=== PATIENT | male | born 1985 | race Caucasian/White ===

== ENCOUNTER 2017-08-14 22:53 | Emergency (ER) | payer BC, OTHER ==
[2017-08-14] MEDS ORDERED: Metoclopramide 10 MG/2 ML SDV IVPUSH ONE (23:16)
[2017-08-14] MEDS ORDERED: HYDROmorphone 0.5 MG/0.5 ML Syringe IVPUSH ONE (23:16)
--- NOTE | 2017-08-14 23:17 | EDM.PDOC ---
ED HPI GENERAL MEDICAL PROBLEM - General Chief Complaint: Abdominal Pain Stated Complaint: VOMITING/NUMB ARMS AND HANDS Time Seen by Provider: 08/14/17 23:12 Source of Information: Reports: Patient History Limitations: Reports: No Limitations - History of Present Illness INITIAL COMMENTS - FREE TEXT/NARRATIVE: 32-year-old male presents to the ED with acute onset of nausea vomiting and loose watery stools about an hour ago. He lost most of what ED and for supper and possibly dinner today. Emesis is really has been bilious without blood. He' s had 3-4 loose large loose watery stools per rectum. A little chance of bad food exposure. An office setting. His is not ill. He states sharp stabbing Abdominal pain which he reports as being 9 out of 10 nearly dropped him to the floor made him pass out. Pain is primarily in the left upper quadrant of the abdomen and not relieved by diarrhea stool. Previous abdominal surgery is that of laparoscopic cholecystectomy. He's cut some chills. He's had no noted fever. Hasn't eaten all of his regular meal so far today. Onset: Today Onset Date: 08/14/17 Onset Time: 22:00 Duration: Minutes: Location: Reports: Abdomen Quality: Reports: Sharp, Stabbing (Acute onset of nausea vomiting and loose watery diarrhea with strong abdominal cramping pain.), Other Severity: Severe (Strong colicky component to the pain. Reports 9 out of 10) Improves with: Reports: None Worsens with: Reports: None Context: Denies: Activity, Exercise, Lifting, Sick Contact, Trauma, Other Associated Symptoms: Reports: Diaphoresis, Fever/Chills (Chills but no fever), Malaise, Nausea/Vomiting, Weakness (See history of present illness). Denies: No Other Symptoms, Confusion, Chest Pain, Cough, cough w sputum, Headaches, Rash , Seizure, Shortness of Breath, Syncope Treatments MANAGER PHYSICAL: Reports: Other (see below) (None.) Abdomen Pain Score (Numeric/FACES): 9 - Related Data Allergies Allergy/AdvReac Type Severity Reaction Status Date / Time No Known Allergies Allergy Verified 08/14/17 23:05 Home Meds: Home Meds Ondansetron [Zofran ODT] 4 mg PO Q6H #10 tab.dis 12/20/17 [Rx] Past Medical History - Past Surgical History GI Surgical History: Reports: Cholecystectomy Social & Family History - Tobacco Use Smoking Status *Q: Never Smoker - Caffeine Use Caffeine Use: Reports: None - Recreational Drug Use Recreational Drug Use: No - Living Situation & Occupation Occupation: Employed ED ROS GENERAL - Review of Systems Review Of Systems: See Below Constitutional: Reports: No Symptoms HEENT: Reports: No Symptoms Respiratory: Reports: No Symptoms Cardiovascular: Reports: No Symptoms Endocrine: Reports: No Symptoms GI/Abdominal: Reports: No Symptoms : Reports: No Symptoms Musculoskeletal: Reports: No Symptoms Skin: Reports: No Symptoms Neurological: Reports: No Symptoms Psychiatric: Reports: No Symptoms Hematologic/Lymphatic: Reports: No Symptoms Immunologic: Reports: No Symptoms ED EXAM, GI/ABD - Physical Exam Exam: See Below Exam Limited By: No Limitations General Appearance: Alert, Moderate Distress (In obvious abdominal discomfort.) Eyes: Bilateral: Normal Appearance ( No jaundice) Throat/Mouth: Normal Inspection, Normal Oropharynx, Other Head: Atraumatic, Normocephalic (Lips are chapped but tongue is well-hydrated) Neck: Normal Inspection, Supple, Non-Tender, Full Range of Motion. No: Carotid Bruit, Lymphadenopathy (L), Lymphadenopathy (R) Respiratory/Chest: No Respiratory Distress, Lungs Clear, Normal Breath Sounds Cardiovascular: Normal Peripheral Pulses, Regular Rate, Rhythm, No Edema ( Anxious with heart rate of 1 18/m at rest.), No Gallop, No Murmur, No Rub, Tachycardia GI/Abdominal Exam: Normal Bowel Sounds, No Abnormal Bruit, No Mass, Pelvis Stable, Abnormal Bowel Sounds, Other (Abdomen is firm to palpation. Evidence of previous laparoscopic cholecystectomy). No: Rigid, Rebound, Tender (Male) Exam: No Hernia (Slightly hyperactive.) Back Exam: Normal Inspection, Full Range of Motion. No: CVA Tenderness (L), CVA Tenderness (R) Extremities: Normal Inspection, Normal Range of Motion, Non-Tender, No Pedal Edema, Normal Capillary Refill Neurological: Alert, Oriented, CN II-XII Intact, Normal Cognition Psychiatric: Normal Mood, Anxious Skin Exam: Warm, Dry, Intact, Normal Color, No Rash Course - Vital Signs Last Recorded V/S: Last Vital Signs Temp 35.9 C 08/14/17 23:00 Pulse 117 H 08/14/17 23:00 Resp 18 08/14/17 23:00 BP 136/94 H 08/14/17 23:00 Pulse Ox 100 08/14/17 23:00 - Orders/Labs/Meds Labs: Laboratory Tests 08/14/17 08/14/17 08/14/17 Range/Units 23:17 23:17 23:17 WBC 9.72 H (4.23-9.07) K/mm3 RBC 5.81 (4.63-6.08) M/mm3 Hgb 18.2 H (13.7-17.5) gm/L Hct 51.4 H (40.1-51.0) % MCV 88.5 (79.0-92.2) fl MCH 31.3 (25.7-32.2) pg MCHC 35.4 (32.2-35.5) g/dl RDW Std Deviation 40.2 (35.1-43.9) fL Plt Count 228 (163-337) K/mm3 MPV 10.0 (9.4-12.3) fl Neutrophils % (Manual) 69 H (40-60) % Band Neutrophils % 1 (0-10) % Lymphocytes % (Manual) 28 (20-40) % Atypical Lymphs % 0 % Monocytes % (Manual) 1 L (2-10) % Eosinophils % (Manual) 0 L (0.8-7.0) % Basophils % (Manual) 1 (0.2-1.2) Platelet Estimate Adequate Plt Morphology Comment Normal RBC Morph Comment Normal Sodium 141 (136-145) mEq/L Potassium 3.1 L (3.5-5.1) mEq/L Chloride 101 (98-107) mEq/L Carbon Dioxide 25 (21-32) mEq/L Anion Gap 18.1 H (5-15) BUN 16 (7-18) mg/dL Creatinine 1.3 (0.7-1.3) mg/dL Est Cr Clr Drug Dosing TNP Estimated GFR (MDRD) > 60 (>60) mL/min BUN/Creatinine Ratio 12.3 L (14-18) Glucose 119 H (74-106) mg/dL Calcium 10.4 H (8.5-10.1) mg/dL Total Bilirubin 2.4 H (0.2-1.0) mg/dL AST 21 (15-37) U/L ALT 26 (16-63) U/L Alkaline Phosphatase 67 (46-116) U/L C-Reactive Protein < 0.2 (<1.0) mg/dL Total Protein 8.4 H (6.4-8.2) g/dl Albumin 4.8 (3.4-5.0) g/dl Globulin 3.6 gm/dL Albumin/Globulin Ratio 1.3 (1-2) Amylase 71 (25-115) U/L Meds: Medications Discontinued Medications Generic Name Dose Route Start Last Admin Trade Name Sachin PRN Reason Stop Dose Admin Hydromorphone HCl 0.5 mg 08/14/17 23:16 08/14/17 23:25 Dilaudid IVPUSH 08/14/17 23:17 0.5 mg ONETIME ONE Administration Dextrose/Sodium Chloride 1,000 mls @ 999 mls/hr 08/14/17 23:30 08/14/17 23:25 Dextrose 5%-Normal Saline IV 999 mls/hr ASDIRECTED HIEU Administration Potassium Chloride 10 meq/ 100 mls @ 100 mls/hr 08/15/17 01:00 08/15/17 01:01 Premix IV 100 mls/hr ASDIRECTED HIEU Administration Dextrose/Sodium Chloride 1,000 mls @ 999 mls/hr 08/15/17 01:00 08/15/17 01:01 Dextrose 5%-Normal Saline IV 999 mls/hr ASDIRECTED HIEU Administration Ketorolac Tromethamine 30 mg 08/14/17 23:30 08/14/17 23:26 Toradol IVPUSH 30 mg ONETIME HIEU Administration Metoclopramide HCl 7.5 mg 08/14/17 23:16 08/14/17 23:26 Reglan IVPUSH 08/14/17 23:17 7.5 mg ONETIME ONE Administration - Radiology Interpretation Free Text/Narrative:: 32-year-old male attends the ED with acute onset of nausea vomiting and diarrhea. Symptoms started about an hour and a half ago. He's vomited large amount of the food that he seen earlier today. Then subsequent emeses have been bilious without blood. Stools have been large-volume water loss. The viral gastroenteritis has been very prevalent in her community as of late. It appears that there is little chance of foodborne illness her. Pain he reports in his abdomen is 9 out of 10 strong colicky plan IV D5 normal saline at open. Given Dilaudid 0.5 mg IV with Reglan 7.5 mg IV to rest nausea vomiting and relieve his pain. Also given Toradol 30 mg IV. One view abdomen routine labs will be obtained. - Re-Assessments/Exams Free Text/Narrative Re-Assessment/Exam: 08/15/17 00:50 Labs reveal a normal white count at 9.72 with a normal differential of 69% neutrophils and 1% bands. Hemoglobin is elevated at 18.2 with hematocrit of 51.4 suggesting a modest degree of hemoconcentration. Platelet count is normal at 228,000. Sodium is 141 potassium is low at 3.1. Chloride 11. Carbon dioxide 25. Anion gap is elevated at 18.1. BUN is 16. Creatinine 1.3. EGFR is greater than 60. Glucose is 119. Calcium is 10.4. Total bilirubin is elevated at 2.4 with normal AST of 21 and normal ALT at 26. Alkaline phosphatase is also normal 67. Therefore appears that the patient does have Gilbert's syndrome. Amylase is 71. C-reactive protein is less than 0.2. Plan will be to give him another liter of D5 normal saline at open. Will also give 10 mg potassium IV as well. 08/15/17 00:51 Patient reports he feels much better with no further abdominal cramping pain. Does feel a bit like he may have to have further diarrhea stool but nausea is gone. He will be allowed sips of Gatorade Powerade with some ice in the ED. He will receive about fluids as he has a significant metabolic acidosis at this time and will replace some of his potassium losses. He knew that he has Gilbert's syndrome. KUB is within normal limits. No signs of bowel obstruction 08/15/17 02:10: Is feeling much improved. Has completed 2 L of IV fluid. He has voided twice. Discharged home with Zofran 4 mg sublingually to be used every 4 hours. For nausea relief. Diet is to be clear fluids and advance as tolerated. He is to be on nondairy diet and no apple or grape juice until stools are formed backup. Note given to excuse him from the workplace today and tomorrow. Departure - Departure Time of Disposition: 02:01 Disposition: Home, Self-Care 01 Condition: Fair Clinical Impression: Gastroenteritis - Discharge Information Prescriptions: Ondansetron [Zofran ODT] 4 mg PO Q6H #10 tab.dis Instructions: Viral Gastroenteritis, Adult, [id number] Referrals: PCP,None [Primary Care Provider] - Forms: ED Department Discharge, ED Return to Work/School Form Additional Instructions: Evaluation in the emergency department in regards to acute onset of nausea vomiting and diarrhea. This appears to be of viral origin. These were aggressively with a large volume of fluid losses likely through diarrhea. You' re therefore given 2 L of IV fluids to replace volume loss as well as 10 mg of potassium to start replace potassium losses. Nausea was treated with Reglan 7.5 mg and abdominal pain treated with Toradol and Dilaudid to relieve cramping. Treatment at home is Zofran 4 mg under the tongue every 4-6 hours as needed for relief of further nausea or vomiting. Diet to be clear fluids such as Gatorade or Powerade ideally 5 or 6 ounces sipped per hour starting tomorrow morning. When hungry made dense to crackers and if tolerated may advance to dry toast or cereal. May then advance to soup broth and/or turkey rice turkey noodle soups. Stay away from all dairy products and no apple juice or grape juice until stools are formed backup which will usually be 3-4 days. Stomach flu typically is been lasting 24 hours but diarrhea can persist depending on what you eat. Note given to excuse her from work today and likely tomorrow.
[2017-08-14] MEDS ORDERED: Ketorolac 30 MG/ML SDV IVPUSH SCH (23:30)
[2017-08-14] MEDS ORDERED: Dextrose 5%-0.9% NaCl 1,000 ML IV SCH (23:30)
[2017-08-15] MEDS ORDERED: Potassium Chloride 10 MEQ in Premix Bag 1 BAG IV SCH (01:00)
[2017-08-15] MEDS ORDERED: Dextrose 5%-0.9% NaCl 1,000 ML IV SCH (01:00)
--- NOTE | 2017-08-15 07:21 | CR ---
Abdomen: Supine view of the abdomen was obtained. Comparison: No previous study. Calcifications are seen within the pelvis most likely representing phleboliths. Gasless abdomen is seen which is nonspecific. Bony structures show minimal scoliosis within the spine. Impression: 1. Incidental findings. Diagnostic code #2
== END 2017-08-15 02:15 | disposition home or self-care (01) ==
LOC: JD.ED 22:53
DX: K52.9 Noninfective gastroenteritis and colitis, unspecified (principal); Z90.49 Acquired absence of other specified parts of digestive tract
CPT/HCPCS: 36415; 74000; 80053; 82150; 85025; 86140; 96361; 96365; 96375; 99284; J1170; J1885; J2765; J3480; J7042

== ENCOUNTER 2020-07-09 08:39 | Emergency (ER) | payer OTHER ==
[2020-07-09] MEDS ORDERED: HYDROmorphone 0.5 MG/0.5 ML Syringe IVPUSH ONE ×2 (09:22→11:06)
[2020-07-09] MEDS: Sodium Chloride 0.9% 10 ML Syringe FLUSH PRN ×2 (09:41→10:11)
--- NOTE | 2020-07-09 09:44 | EDM.PDOC ---
ED HPI GENERAL MEDICAL PROBLEM - General Chief Complaint: Chest Pain Stated Complaint: CHEST PAIN ON LT SIDE Time Seen by Provider: 07/09/20 09:00 Source of Information: Reports: Patient History Limitations: Reports: No Limitations - History of Present Illness INITIAL COMMENTS - FREE TEXT/NARRATIVE: The patient presents with chest pain. He was diagnosed with COVID 19 on June 21. He has been out of quarantine for about a week. He was still having a cough, shortness of breath and generalized weakness. He went to the walk in clinic and they diagnosed him with pneumonia. He was put on a z-cameron. Yesterday he went for a 15 minute walk and last night he developed left sided chest pain. It hurts to take a deep breath and he cannot lay on his left side. He still has a cough and he feels short of breath. He has no fever or chills. He has no abdominal pain, nausea, vomiting or diarrhea. He has no medical problems such as asthma or heart disease. He does not smoke. Onset: Gradual Duration: Day(s): Location: Reports: Chest Quality: Reports: Sharp Severity: Moderate Improves with: Reports: Immobilization Worsens with: Reports: Movement Context: Denies: Trauma Associated Symptoms: Reports: Chest Pain, Cough, Shortness of Breath. Denies: Fever/Chills, Headaches, Nausea/Vomiting Left Chest Pain Score (Numeric/FACES): 6 - Related Data Allergies Allergy/AdvReac Type Severity Reaction Status Date / Time No Known Allergies Allergy Verified 08/14/17 23:05 Home Meds: Home Meds Albuterol Sulfate [Albuterol Sulfate Hfa] 1 inh INH ASDIRECTED 07/09/20 [History] Hydrocodone/Acetaminophen [Hydrocodone-Acetamin 5-325 mg] 1 - 2 each PO Q6HR PRN #10 tablet 07/09/20 [Rx] Past Medical History - Infectious Disease History Infectious Disease History: Reports: Chicken Pox, Influenza - Past Surgical History HEENT Surgical History: Reports: Oral Surgery GI Surgical History: Reports: Cholecystectomy Social & Family History - Tobacco Use Tobacco Use Status *Q: Never Tobacco User Second Hand Smoke Exposure: No - Caffeine Use Caffeine Use: Reports: None - Recreational Drug Use Recreational Drug Use: No - Living Situation & Occupation Occupation: Employed ED ROS GENERAL - Review of Systems Review Of Systems: See Below Constitutional: Reports: No Symptoms HEENT: Reports: No Symptoms Respiratory: Reports: Shortness of Breath, Cough Cardiovascular: Reports: Chest Pain Endocrine: Reports: No Symptoms GI/Abdominal: Reports: No Symptoms : Reports: No Symptoms Musculoskeletal: Reports: No Symptoms ED EXAM, GENERAL - Physical Exam Exam: See Below Exam Limited By: No Limitations General Appearance: Alert, No Apparent Distress Ears: Normal External Exam Nose: Normal Inspection Head: Atraumatic, Normocephalic Neck: Normal Inspection Respiratory/Chest: No Respiratory Distress, Lungs Clear, Normal Breath Sounds Cardiovascular: Regular Rate, Rhythm, No Edema, No Murmur GI/Abdominal: Soft, Non-Tender, No Organomegaly, No Mass Back Exam: Normal Inspection Extremities: Normal Inspection Course - Vital Signs Last Recorded V/S: Last Vital Signs Temp 98.2 F 07/09/20 08:57 Pulse 91 07/09/20 08:57 Resp 12 07/09/20 08:57 BP 121/85 07/09/20 08:57 Pulse Ox 100 07/09/20 08:57 - Orders/Labs/Meds Orders: Active Orders 24 hr Category Date Time Status Cardiac Monitoring [RC] . DIRECTED Care 07/09/20 09:14 Active EKG Documentation Completion [RC] STAT Care 07/09/20 09:15 Active Peripheral IV Care [RC] . DIRECTED Care 07/09/20 09:15 Active Sodium Chloride 0.9% [Normal Saline] 100 ml Med 07/09/20 10:00 Active IV ASDIRECTED Sodium Chloride 0.9% [Saline Flush] Med 07/09/20 09:14 Active 10 ml FLUSH ASDIRECTED PRN Sodium Chloride 0.9% [Saline Flush] Med 07/09/20 09:57 Active 10 ml FLUSH ONETIME PRN Peripheral IV Insertion Adult [OM.PC] Stat Oth 07/09/20 09:14 Ordered Medication Orders Sodium Chloride (Normal Saline) 100 mls @ 60 mls/hr IV ASDIRECTED HIEU Last Admin: 07/09/20 10:11 Dose: 60 mls/hr Documented by: GUSTAVO Sodium Chloride (Saline Flush) 10 ml FLUSH ASDIRECTED PRN PRN Reason: Keep Vein Open Last Admin: 07/09/20 10:11 Dose: 10 ml Documented by: [email or web address] Admin: 07/09/20 09:41 Dose: 10 ml Documented by: JAK Sodium Chloride (Saline Flush) 10 ml FLUSH ONETIME PRN PRN Reason: Keep Vein Open Last Admin: 07/09/20 10:47 Dose: 10 ml Documented by: JM Labs: Laboratory Tests 07/09/20 07/09/20 07/09/20 Range/Units 09:40 09:40 09:40 WBC 6.32 (4.23-9.07) K/mm3 RBC 4.85 (4.63-6.08) M/mm3 Hgb 15.4 D (13.7-17.5) gm/dl Hct 44.3 (40.1-51.0) % MCV 91.3 (79.0-92.2) fl MCH 31.8 (25.7-32.2) pg MCHC 34.8 (32.2-35.5) g/dl RDW Std Deviation 40.1 (35.1-43.9) fL Plt Count 324 D (163-337) K/mm3 MPV 9.5 (9.4-12.3) fl Neut % (Auto) 67.6 (34.0-67.9) % Lymph % (Auto) 17.4 L (21.8-53.1) % Shannon % (Auto) 13.8 H (5.3-12.2) % Eos % (Auto) 0.8 (0.8-7.0) Baso % (Auto) 0.2 (0.1-1.2) % Neut # (Auto) 4.28 (1.78-5.38) K/mm3 Lymph # (Auto) 1.10 L (1.32-3.57) K/mm3 Shannon # (Auto) 0.87 H (0.30-0.82) K/mm3 Eos # (Auto) 0.05 (0.04-0.54) K/mm3 Baso # (Auto) 0.01 (0.01-0.08) K/mm3 D-Dimer, Quantitative 0.20 (0.19-0.50) mg/L Sodium 138 (136-145) mEq/L Potassium 3.9 (3.5-5.1) mEq/L Chloride 103 (98-107) mEq/L Carbon Dioxide 26 (21-32) mEq/L Anion Gap 12.9 (5-15) BUN 13 (7-18) mg/dL Creatinine 1.1 (0.7-1.3) mg/dL Est Cr Clr Drug Dosing 101.90 mL/min Estimated GFR (MDRD) > 60 (>60) mL/min BUN/Creatinine Ratio 11.8 L (14-18) Glucose 94 (74-106) mg/dL Calcium 9.4 (8.5-10.1) mg/dL Total Bilirubin 1.3 H (0.2-1.0) mg/dL AST 15 (15-37) U/L ALT 30 (16-63) U/L Alkaline Phosphatase 78 (46-116) U/L Troponin I < 0.017 (0.00-0.056) ng/mL C-Reactive Protein 2.6 H* (<1.0) mg/dL Total Protein 7.1 (6.4-8.2) g/dl Albumin 3.6 (3.4-5.0) g/dl Globulin 3.5 gm/dL Albumin/Globulin Ratio 1.0 (1-2) Meds: Medications Generic Name Dose Route Start Last Admin Trade Name Freq PRN Reason Stop Dose Admin Sodium Chloride 100 mls @ 60 mls/hr 07/09/20 10:00 07/09/20 10:11 Normal Saline IV 60 mls/hr ASDIRECTED HIEU Administration Sodium Chloride 10 ml 07/09/20 09:14 07/09/20 10:11 Saline Flush FLUSH 10 ml ASDIRECTED PRN Administration Keep Vein Open Sodium Chloride 10 ml 07/09/20 09:57 07/09/20 10:47 Saline Flush FLUSH 10 ml ONETIME PRN Administration Keep Vein Open Discontinued Medications Generic Name Dose Route Start Last Admin Trade Name Freq PRN Reason Stop Dose Admin Hydromorphone HCl 0.5 mg 07/09/20 09:22 07/09/20 09:41 Dilaudid IVPUSH 07/09/20 09:23 0.5 mg ONETIME ONE Administration Iopamidol 100 ml 07/09/20 09:57 07/09/20 10:11 Isovue-370 (76%) IVPUSH 07/09/20 09:58 100 ml ONETIME ONE Administration - Re-Assessments/Exams Free Text/Narrative Re-Assessment/Exam: 07/09/20 09:43 I ordered an IV saline lock, dilaudid 0.5mg IV, EKG, CT angio of his chest and labs. 07/09/20 11:06 His EKG shows NSR with no acute changes. His CBC and CMP look good. His troponin is negative. His CRP is elevated at 2.6. The CT shows minimal ground- glass airspace disease within the right mid and lower lung pearson. Followup radiographs recommended after appropriate therapy. I feel this is COVID pneumonia still and more antibiotics will not help. He has more pain so I will give him some dilaudid and something for pain at home. Departure - Departure Time of Disposition: 11:10 Disposition: Home, Self-Care 01 Condition: Good Clinical Impression: COVID-19, Pneumonia due to COVID-19 virus, Pleurisy Prescriptions: Hydrocodone/Acetaminophen [Hydrocodone-Acetamin 5-325 mg] 1 - 2 each PO Q6HR PRN #10 tablet PRN Reason: Pain Referrals: Braeden Denny Jr, MD [Primary Care Provider] - 1 Week Forms: ED Department Discharge Additional Instructions: Drink plenty of fluids. Take tylenol or motrin for pain. If that does not help, try the hydrocodone. Get plenty of rest. Please return if you are worse. Sepsis Event Note (ED) - Evaluation Sepsis Screening Result: No Definite Risk - Focused Exam Vital Signs: Vital Signs Temp Pulse Resp BP Pulse Ox 07/09/20 08:57 98.2 F 91 12 121/85 100 - My Orders Last 24 Hours: My Active Orders 07/09/20 09:14 Cardiac Monitoring [RC] . DIRECTED Sodium Chloride 0.9% [Saline Flush] 10 ml FLUSH ASDIRECTED PRN Peripheral IV Insertion Adult [OM.PC] Stat 07/09/20 09:15 EKG Documentation Completion [RC] STAT Peripheral IV Care [RC] . DIRECTED 07/09/20 09:57 Sodium Chloride 0.9% [Saline Flush] 10 ml FLUSH ONETIME PRN 07/09/20 10:00 Sodium Chloride 0.9% [Normal Saline] 100 ml IV ASDIRECTED - Assessment/Plan Last 24 Hours: My Active Orders 07/09/20 09:14 Cardiac Monitoring [RC] . DIRECTED Sodium Chloride 0.9% [Saline Flush] 10 ml FLUSH ASDIRECTED PRN Peripheral IV Insertion Adult [OM.PC] Stat 07/09/20 09:15 EKG Documentation Completion [RC] STAT Peripheral IV Care [RC] . DIRECTED 07/09/20 09:57 Sodium Chloride 0.9% [Saline Flush] 10 ml FLUSH ONETIME PRN 07/09/20 10:00 Sodium Chloride 0.9% [Normal Saline] 100 ml IV ASDIRECTED
[2020-07-09] MEDS ORDERED: Iopamidol 755 Mg/ML 100 ML Bottle IVPUSH ONE (09:57)
[2020-07-09] MEDS ORDERED: Sodium Chloride 0.9% 10 ML Syringe FLUSH PRN (09:57)
[2020-07-09] MEDS ORDERED: Sodium Chloride 0.9% 100 ML IV SCH (10:00)
--- NOTE | 2020-07-09 10:43 | CT ---
PROCEDURE INFORMATION: Exam: CT Chest With Contrast Exam date and time: 07/09/2020 9:51 AM Age: 35 years old Clinical indication: Type not specified; Patient HX: Left sided chest pain, recent covid and pneumonia dx TECHNIQUE: Imaging protocol: Computed tomography of the chest with intravenous contrast. 3D rendering (Not supervised by radiologist): MIP and/or 3D reconstructed images were created by the technologist. Radiation optimization: All CT scans at this facility use at least one of these dose optimization techniques: automated exposure control; mA and/or kV adjustment per patient size (includes targeted exams where dose is matched to clinical indication); or iterative reconstruction. Contrast material: ISOVUE 370; Contrast volume: 100 ml; Contrast route: INTRAVENOUS (IV); COMPARISON: No relevant prior studies available. FINDINGS: Lungs: Subpleural interstitial prominence in the posterior lungs has an appearance most suggestive of atelectasis but in addition, there several other small peripheral but nodular interstitial opacities interstitial thickening and areas of slight ground-glass attenuation which are suspicious for an inflammatory process. Pleural space: Tiny pleural effusion. Heart: Unremarkable. No cardiomegaly. No pericardial effusion. Pulmonary arteries: No filling defects are identified in the arteries to suggest the presence a embolism. Aorta: Unremarkable. No aortic aneurysm. Lymph nodes: Unremarkable. No enlarged lymph nodes. Gallbladder and bile ducts: Cholecystectomy. Bones/joints: Unremarkable. No acute fracture. Soft tissues: Unremarkable. IMPRESSION: 1. No pulmonary embolism identified 2. Few areas nodular interstitial prominence and ground-glass attenuation and posterior dependent atelectasis. Imaging features can be seen with COVID-19 pneumonia, though are nonspecific and can occur with a variety of infectious and noninfectious processes. (Reference: Jose) References: Jose Jaeger, et al., Radiological Society of [place] Expert Consensus Statement on Reporting Chest CT Findings Related to COVID-19. Endorsed by the Society of Thoracic Radiology, the [place] [employer], and RSNA. Published November 19, 2019. Thank you for allowing us to participate in the care of your patient. Dictated and Authenticated by: Niesha Mitchell MD 07/09/2020 11:39 AM Central Time ([place] & [place]) SHAYLA
== END 2020-07-09 11:37 | disposition home or self-care (01) ==
LOC: JD.ED 08:39
DX: U07.1 COVID-19 (principal); J12.89 Other viral pneumonia; R09.1 Pleurisy
CPT/HCPCS: 36415; 71275; 80053; 84484; 85025; 85379; 86140; 93005; 96374; 99285; J1170; Q9967; 93010; 99284

== ENCOUNTER 2021-08-18 14:33 | Emergency (ER) | payer BC, OTHER ==
[2021-08-18] MEDS ORDERED: Ketorolac 60 MG/2 ML SDV IM ONE (15:33)
--- NOTE | 2021-08-18 16:18 | CR ---
Left shoulder: 3 views of the left shoulder were obtained. Comparison: No prior shoulder study is available. Acromioclavicular joint and glenohumeral joint appears within normal limits. No fracture, dislocation or other bony abnormality is appreciated. No abnormal soft tissue calcifications are seen. Impression: 1. Nothing acute is seen on 3-view left shoulder study. Diagnostic code #1
--- NOTE | 2021-08-18 16:38 | EDM.PDOC ---
ED HPI GENERAL MEDICAL PROBLEM - General Chief Complaint: Upper Extremity Injury/Pain Stated Complaint: LEFT ARM PAIN Time Seen by Provider: 08/18/21 15:02 Source of Information: Reports: Patient History Limitations: Reports: No Limitations - History of Present Illness INITIAL COMMENTS - FREE TEXT/NARRATIVE: 36-year-old male presents the emergency department with complaints of left shoulder pain. Patient states he woke this morning with pain in his left posterior cervical area. He states he does have a history of muscle tightness noted in this area. He states he then elected to see his massage therapist this morning and had cupping done. Also notes pain to the left scapular area. He states after he went to the massage therapist he then elected to go see the chiropractor. He states he was adjusted however then developed severe pain noted to his left lateral shoulder. He states that the pain radiates from his scapular area. When he initially woke this morning at about 4 AM he did take 3 ibuprofen for the discomfort noted in his neck. He states he then went back to bed and woke at approximately 930 this morning. At that time he elected to take Flexeril and it did not help. He now states that when he tries to raise his left arm to the side he gets severe shooting pain noted in his left lateral shoulder area that is so severe it causes him to feel nauseated. Denies any injury or surgeries noted to this area. He denies any recent trauma. Left Shoulder Pain Score (Numeric/FACES): 10 - Related Data Allergies Allergy/AdvReac Type Severity Reaction Status Date / Time No Known Allergies Allergy Verified 08/18/21 15:10 Home Meds: Home Meds Hydrocodone/Acetaminophen [HYDROcodone-Acetaminophen 5-325 MG] 1 each PO Q4H PRN #14 tab 08/18/21 [Rx] Past Medical History - Infectious Disease History Infectious Disease History: Reports: Chicken Pox, Influenza - Past Surgical History HEENT Surgical History: Reports: Oral Surgery GI Surgical History: Reports: Cholecystectomy Social & Family History - Tobacco Use Tobacco Use Status *Q: Never Tobacco User - Caffeine Use Caffeine Use: Reports: Soda - Recreational Drug Use Recreational Drug Use: No - Living Situation & Occupation Occupation: Employed Review of Systems - Review of Systems Review Of Systems: Comprehensive ROS is negative, except as noted in HPI. ED EXAM, GENERAL - Physical Exam Exam: See Below Exam Limited By: No Limitations General Appearance: Alert, WD/WN, Moderate Distress Ears: Normal External Exam, Hearing Grossly Normal Nose: Normal Inspection Throat/Mouth: Normal Inspection, Normal Lips, Normal Voice, No Airway Compromise Head: Atraumatic, Normocephalic Neck: Normal Inspection, Supple Respiratory/Chest: No Respiratory Distress, Lungs Clear, Normal Breath Sounds, No Accessory Muscle Use, Chest Non-Tender Cardiovascular: Normal Peripheral Pulses, Regular Rate, Rhythm, No Edema, No Murmur Peripheral Pulses: 2+: Radial (L), Radial (R) GI/Abdominal: Normal Bowel Sounds, Soft, Non-Tender, No Distention (Male) Exam: Deferred Rectal (Males) Exam: Deferred Back Exam: Normal Inspection, Full Range of Motion Extremities: Normal Inspection, Non-Tender, No Pedal Edema, Normal Capillary Refill, Limited Range of Motion (Left arm) Neurological: Alert, Oriented, Normal Cognition Psychiatric: Normal Affect, Normal Mood Skin Exam: Warm, Dry, Intact, Normal Color, No Rash Lymphatic: No Adenopathy Course - Vital Signs Text/Narrative:: Physical exam reveals a very uncomfortable male. Patient states pain is so severe he is nauseated with movement. Patient is able to slowly sit at the side of the bed independently. No cervical or lumbar spinal pain is appreciated. He does have some tenderness noted with palpation to the left scapular area. He does have bruising noted to his back from coughing that was performed this morning. He did have the patient attempt to do straight arm lateral raise and managed to get the left arm to about 45 degrees before developing severe lateral shoulder discomfort. Denies any numbness or tingling to the hands or fingers. Will obtain left shoulder x-ray as well as medicate the patient with 60 Toradol IM. Last Recorded V/S: Last Vital Signs Temp 98.4 F 08/18/21 15:11 Pulse 81 08/18/21 15:11 Resp 14 08/18/21 15:11 BP 123/93 H 08/18/21 15:11 Pulse Ox 98 08/18/21 15:11 - Orders/Labs/Meds Orders: Active Orders 24 hr Category Date Time Status DME for Discharge [COMM] Stat Oth 08/18/21 18:05 Ordered Meds: Medications Discontinued Medications Generic Name Dose Route Start Last Admin Trade Name Freq PRN Reason Stop Dose Admin Hydromorphone HCl 1 mg 08/18/21 16:46 08/18/21 17:26 Hydromorphone 1 Mg/Ml Syringe IM 08/18/21 16:47 1 mg ONETIME ONE Administration Ketorolac Tromethamine 60 mg 08/18/21 15:33 08/18/21 16:09 Ketorolac 60 Mg/2 Ml Sdv IM 08/18/21 15:34 60 mg ONETIME ONE Administration - Re-Assessments/Exams Free Text/Narrative Re-Assessment/Exam: 08/18/21 16:46 Radiologist impression 3 views left shoulder: Acromioclavicular joint and glenohumeral joint appears to be within normal limits. No fracture, dislocation or other bony abnormality is appreciated. No abnormal soft tissue calcifications are seen. Impression: 1. Nothing acute is seen on 3 view left shoulder study Patient states that Toradol has helped his pain slightly however he is still having significant amount of discomfort noted. We will give him a shot of Dilaudid 1 mg IM. 08/18/21 18:07 Patient states pain is better after receiving Dilaudid however still having significant pain when raising his left arm laterally. I have ordered a sling for the patient poor stability and to prevent pain. 08/18/21 18:44 Patient reports that sling to left arm decreases the pain significantly. He will be discharged home with a prescription for hydrocodone 1 tab every 6 hours as needed for discomfort. Departure - Departure Time of Disposition: 18:45 Disposition: Home, Self-Care 01 Condition: Good Clinical Impression: Shoulder pain, acute Qualifiers: Laterality: left Qualified Code(s): M25.512 - Pain in left shoulder - Discharge Information Prescriptions: Hydrocodone/Acetaminophen [HYDROcodone-Acetaminophen 5-325 MG] 1 each PO Q4H PRN #14 tab PRN Reason: Pain (Moderate 4-6) Referrals: PCP,None [Primary Care Provider] - Forms: ED Department Discharge Additional Instructions: You were seen in the emergency department this evening with complaints of left shoulder discomfort that initially started as neck pain. While in the emergency department you received anti-inflammatory medication as well as narcotic pain medication. Wear the splint to the left arm at all times during the day. Remove at nighttime and keep arm elevated on a pillow for comfort. If symptoms prescription for medication called hydrocodone to [place] [facility]. You may take 1 tab every 4 hours as needed for pain. Recommend alternating this medication with ibuprofen 600 mg every 4 hours for the next 48 hours. Use ice for the next 48 hours 30 minutes at a time every 3 hours while awake. Stay away from any heat as this causes more inflammation. Also note that if you are taking the hydrocodone pretty consistently that you will need to be sure to drink plenty of fluids and likely take a stool softener to prevent constipation. If you are not feeling better in the next few days to 1 week, recommend that you follow-up with Dr. Martinez at [facility] for further evaluation. Sepsis Event Note (ED) - Evaluation Sepsis Screening Result: No Definite Risk - Focused Exam Vital Signs: Vital Signs Temp Pulse Resp BP Pulse Ox 08/18/21 15:11 98.4 F 81 14 123/93 H 98 - My Orders Last 24 Hours: My Active Orders 08/18/21 18:05 DME for Discharge [COMM] Stat - Assessment/Plan Last 24 Hours: My Active Orders 08/18/21 18:05 DME for Discharge [COMM] Stat
[2021-08-18] MEDS ORDERED: HYDROmorphone 1 MG/ML Syringe IM ONE (16:46)
== END 2021-08-18 19:00 | disposition home or self-care (01) ==
LOC: JD.ED 14:33
DX: M25.512 Pain in left shoulder (principal)
CPT/HCPCS: 73030; 96372; 99283; J1170; J1885

== ENCOUNTER 2024-11-05 18:31 | Emergency (ER) | payer BC ==
[2024-11-05] MEDS ORDERED: Naloxone 0.4 MG/ML SDV IVPUSH PRN ×2 (19:37→20:34)
[2024-11-05] MEDS: HYDROmorphone 0.5 MG/0.5 ML Syringe IVPUSH ONE ×2 (19:46→21:04)
[2024-11-05] MEDS: Sodium Chloride 0.9% 1,000 ML IV ONE (19:46)
[2024-11-05 19:47] LABS: BASOPHILS PERCENT AUTO 0.2 % (0.0-1.0); EOSINOPHILS ABSOLUTE AUTO 0.1 K/mm3 (0.0-0.4); EOSINOPHILS PERCENT AUTO 1.1 % (0.0-6.0); HEMATOCRIT 47.6 % (42.0-52.0); HEMOGLOBIN 16.9 gm/dl (14.0-18.0); IMMATURE GRAN ABSOLUTE AUTO 0.01 K/mm3 (0.00-0.05); IMMATURE GRAN PERCENT AUTO 0.2 % (0.0-0.4); LYMPHOCYTES PERCENT AUTO 37.5 % (24.0-44.0); MEAN CORPUSCULAR HEMOGLOBIN 32.4 pg (28.0-32.0); MEAN CORPUSCULAR HGB CONC 35.5 g/dl (32.0-36.0); MEAN CORPUSCULAR VOLUME 91.4 fl (83.0-99.0); MEAN PLATELET VOLUME 9.6 fl (9.4-12.4); MONOCYTES ABSOLUTE AUTO 0.6 K/mm3 (0.0-0.8); MONOCYTES PERCENT AUTO 10.8 % (0.0-8.0); NEUTROPHILS ABSOLUTE AUTO 2.6 K/mm3 (1.8-7.7); NEUTROPHILS PERCENT AUTO 50.2 % (41.0-71.0); PLATELET COUNT,PLT 238 K/mm3 (150-400); RED BLOOD CELL COUNT 5.21 M/mm3 (4.52-5.90); WHITE BLOOD CELL COUNT,WBC 5.26 K/mm3 (3.9-11.3)
[2024-11-05 20:17] LABS: A/G RATIO 1.2 (1-2); ANION GAP 12.7 (5-15); BILIRUBIN TOTAL 1.6 mg/dL (0.2-1.0); BUN/CREATININE RATIO 9.2 (14-18); CREATININE 1.3 mg/dL (0.7-1.3); EST CRCL DRUG DOSING (CG) 82.91 mL/min; POTASSIUM,K 3.7 mEq/L (3.5-5.1); PROTEIN TOTAL,TP 7.3 g/dl (6.4-8.2)
[2024-11-05] MEDS: Iopamidol 612 MG/ML 100 ML Bottle IVPUSH ONE (20:36)
== END 2024-11-05 21:36 | disposition home or self-care (01) ==
LOC: JD.ED 18:31
DX: K60.2 Anal fissure, unspecified (principal); Z79.899 Other long term (current) drug therapy; Z90.49 Acquired absence of other specified parts of digestive tract
CPT/HCPCS: 36415; 74177; 80053; 85025; 96361; 96374; 96376; 99284; J7030; Q9967